=== PATIENT | female | born 1985 | race Caucasian/White ===

== ENCOUNTER 2017-08-03 22:02 | Emergency (ER) | payer SELFPAY ==
[~2017-08-03] VITALS: Ht 170.2 cm; Wt 54.0 kg
[2017-08-03 22:08] VITALS: BP 114/69
[2017-08-03] MEDS ORDERED: HYDROcodone/APAP 5/325 TABLET ONE (23:30)
[2017-08-03] MEDS ORDERED: HYDROcodone/APAP 5/325 TABLET PO ONE (23:30)
== END 2017-08-04 00:24 | disposition home or self-care (01) ==
LOC: ED 23:20
DX: S02.2XXA Fracture of nasal bones, initial encounter for closed fracture (principal); F17.200 Nicotine dependence, unspecified, uncomplicated; Z90.710 Acquired absence of both cervix and uterus; F07.81 Postconcussional syndrome; W01.198A Fall on same level from slipping, tripping and stumbling with subsequent striking against other object, initial encounter; Y93.89 Activity, other specified; Y99.8 Other external cause status; Y92.89 Other specified places as the place of occurrence of the external cause
CPT/HCPCS: 70450; 93005; 99284

== ENCOUNTER 2017-10-11 01:16 | Emergency (ER) | payer SELFPAY ==
[~2017-10-11] VITALS: Ht 170.2 cm; Wt 53.1 kg
[2017-10-11 01:17] VITALS: BP 113/72
== END 2017-10-11 03:12 | disposition home or self-care (01) ==
LOC: ED 02:28
DX: J04.0 Acute laryngitis (principal); Z72.9 Problem related to lifestyle, unspecified
CPT/HCPCS: 71020; 99284

== ENCOUNTER 2018-04-01 07:00 | Inpatient (IN) | payer OTHER ==
[~2018-04-01] VITALS: Ht 167.6 cm; Wt 56.7 kg
[2018-04-01] MEDS ORDERED: ACETAMINOPHEN 325 MG TABLET ONE (07:25)
[2018-04-01] MEDS ORDERED: VANCOMYCIN PER PHARMACY MC PRN ×2 (07:30→11:30)
[2018-04-01] MEDS ORDERED: SODIUM CHLORIDE FLUSH 10ML SYR IVF ONE (07:30)
[2018-04-01] MEDS ORDERED: CEFTRIAXONE PMX 1GM/50ML 50 ML IV ONE (07:30)
[2018-04-01] MEDS ORDERED: SODIUM CHLORIDE 0.9% 1,000ML IVBOLUS ONE ×3 (07:30→13:25)
[2018-04-01] MEDS ORDERED: ACETAMINOPHEN 500 MG TABLET PO ONE (07:30)
[2018-04-01] MEDS ORDERED: ACETAMINOPHEN 500 MG TABLET ONE (07:31)
[2018-04-01] MEDS ORDERED: PHARMACOKINETIC CONSULTATION MC ONE ×2 (08:00→15:00)
[2018-04-01] MEDS ORDERED: VANCOMYCIN PMX 1GM/200ML 200 ML IVPB ONE ×2 (08:00→09:00)
[2018-04-01 08:03] LABS: BASOPHILS % (AUTO) 0 % (0-1); EOSINOPHILS # (AUTO) 0.01 x10^3/uL (0-0.4); EOSINOPHILS % (AUTO) 0 % (1-7); LYMPHOCYTES # (AUTO) 1.01 x10^3/uL (1-3.4); LYMPHOCYTES % (AUTO) 10 % (22-44); MD NO; MEAN CORPUSCULAR HEMOGLOBIN 32.2 pg (27.0-34.8); MEAN CORPUSCULAR HGB CONC 34.2 g/dL (32.4-35.8); MEAN CORPUSCULAR VOLUME 94.1 fL (80-100); MEAN PLATELET VOLUME 6.7 fL (7.4-10.4); MONOCYTES # (AUTO) 0.75 x10^3/uL (0.2-0.8); MONOCYTES % (AUTO) 7 % (2-9); NEUTROPHILS # (AUTO) 8.57 x10^3/uL (1.8-6.8); NEUTROPHILS % (AUTO) 83 % (42-75); PLATELET COUNT 203 x10^3/uL (130-400); RED BLOOD COUNT 4.48 x10^6/uL (3.82-5.3); RED CELL DISTRIBUTION WIDTH 12.8 % (9.6-15.2)
[2018-04-01] MEDS ORDERED: CEFTRIAXONE PMX 1GM/50ML 50 ML ONE (08:10)
[2018-04-01 08:13] LABS: MICROSCOPIC INDICATED
[2018-04-01 08:14] LABS: CULTURE INDICATED? YES
[2018-04-01 08:16] LABS: ALANINE AMINOTRANSFERASE 101 U/L (12-78); ALBUMIN 3.2 g/dL (3.4-5.0); ANION GAP 8 mmol/L (5-15); CALCIUM 7.6 mg/dL (8.5-10.1); CHLORIDE 100 mmol/L (98-107)
[2018-04-01 08:21] LABS: ALKALINE PHOSPHATASE 58 U/L (45-117); BILIRUBIN,TOTAL 0.7 mg/dL (0.2-1.0)
[2018-04-01] MEDS ORDERED: OMNIPAQUE 350 MG/ML, 100ML BOTTLE ONE (10:12)
[2018-04-01] MEDS ORDERED: ACETAMINOPHEN 325 MG TABLET PO PRN (11:30)
[2018-04-01] MEDS ORDERED: ENOXAPARIN 40 MG/0.4 ML SQ SCH (11:30)
[2018-04-01 12:20] LABS: HCT (SEDRATE) 42.2 % (34.6-47.8)
[2018-04-01] MEDS ORDERED: MAGNESIUM SULFATE PMX 2GM/50ML 50 ML IV ONE (12:30)
[2018-04-01] MEDS ORDERED: NALOXONE 0.4 MG/ML, 1ML IVPush ONE (12:30)
[2018-04-01] MEDS: LACTATED RINGERS 1,000 ML IV SCH (13:07)
[2018-04-01 13:12] VITALS: BP 86/50
[2018-04-01 14:21] VITALS: BP 93/57
[2018-04-01] MEDS ORDERED: PHARMACOKINETIC MONITORING MC PRN (15:00)
[2018-04-01] MEDS: CEFEPIME 1 GM in DEXTROSE 5% 50 ML IV SCH ×2 (15:26→23:16)
[2018-04-01 16:49] LABS: AMPHETAMINE SCREEN, URINE Positive (Negative); BARBITURATE SCREEN, URINE Negative (Negative); BENZODIAZEPINE SCREEN, URINE Negative (Negative); CANNABINOID SCREEN, URINE Negative (Negative); COCAINE SCREEN, URINE Negative (Negative); METHADONE SCREEN, URINE Negative (Negative); OPIATE SCREEN, URINE Positive (Negative)
[2018-04-01 18:49] VITALS: BP 89/51
[2018-04-01] MEDS ORDERED: VANCOMYCIN PMX 1GM/200ML 200 ML IV SCH (21:30)
[2018-04-02] MEDS: LACTATED RINGERS 1,000 ML IV SCH ×2 (00:11→07:59)
[2018-04-02 02:00] VITALS: BP 94/58
[2018-04-02 05:54] LABS: BASOPHILS # (AUTO) 0.02 x10^3/uL (0-0.1); BASOPHILS % (AUTO) 0 % (0-1); EOSINOPHILS # (AUTO) 0.04 x10^3/uL (0-0.4); EOSINOPHILS % (AUTO) 1 % (1-7); LYMPHOCYTES # (AUTO) 1.68 x10^3/uL (1-3.4); LYMPHOCYTES % (AUTO) 30 % (22-44); MD NO; MEAN CORPUSCULAR HGB CONC 34.9 g/dL (32.4-35.8); MEAN CORPUSCULAR VOLUME 94.7 fL (80-100); MEAN PLATELET VOLUME 7.2 fL (7.4-10.4); MONOCYTES # (AUTO) 0.63 x10^3/uL (0.2-0.8); MONOCYTES % (AUTO) 11 % (2-9); NEUTROPHILS # (AUTO) 3.24 x10^3/uL (1.8-6.8); NEUTROPHILS % (AUTO) 58 % (42-75); PLATELET COUNT 169 x10^3/uL (130-400); RED BLOOD COUNT 3.98 x10^6/uL (3.82-5.3); RED CELL DISTRIBUTION WIDTH 13.3 % (9.6-15.2)
[2018-04-02 06:00] VITALS: BP 99/63
[2018-04-02 06:13] LABS: CHLORIDE 110 mmol/L (98-107)
[2018-04-02] MEDS: CEFEPIME 1 GM in DEXTROSE 5% 50 ML IV SCH (06:26)
[2018-04-02 07:20] LABS: CALCIUM 8.1 mg/dL (8.5-10.1)
[2018-04-02 07:46] LABS: ANION GAP 5 mmol/L (5-15)
[2018-04-02 08:51] VITALS: BP 105/67
== END 2018-04-02 09:17 | disposition left against medical advice (07) | DRG 871 ==
LOC: ED 10:34 → EDIP 10:35 → ED 10:56 → 4EST 13:04
PROVIDERS: ADMIT Hospitalist; ATTEND Hospitalist
PROC: 0T9B70Z Drainage of Bladder with Drainage Device, Via Natural or Artificial Opening (ICD-10-PCS; principal; 2018-04-01)
DX: A41.9 Sepsis, unspecified organism (principal); J15.9 Unspecified bacterial pneumonia; R65.21 Severe sepsis with septic shock; N12 Tubulo-interstitial nephritis, not specified as acute or chronic; F11.10 Opioid abuse, uncomplicated; F15.90 Other stimulant use, unspecified, uncomplicated; G89.29 Other chronic pain; K72.90 Hepatic failure, unspecified without coma; R91.1 Solitary pulmonary nodule; Z53.21 Procedure and treatment not carried out due to patient leaving prior to being seen by health care provider
CPT/HCPCS: 36415; 71045; 74177; 80048; 80053; 80307; 81001; 83605; 83690; 83735; 84100; 84703; 85025; 85651; 87040; 87077; 87086; 87186; 96361; 96365; 96367; J0692; J0696; J1650; J3370; Q9967; J3475; J7030; J7120